=== PATIENT | male | born 1985 | race Caucasian/White ===

== ENCOUNTER 2018-08-11 07:32 | Inpatient (IN) | payer OTHER ==
[2018-07-31 12:11] VITALS: BMI 48.3
[2018-08-11] MEDS ORDERED: PROPOFOL 20 ML ONE (08:21)
[2018-08-11] MEDS ORDERED: MIDAZOLAM HCL 2 MG/2 ML SINGLE DOSE VIAL ONE ×3 (08:21→09:53)
[2018-08-11] MEDS ORDERED: ROCURONIUM BROMIDE 50 MG/5 ML VIAL ONE (08:21)
[2018-08-11] MEDS ORDERED: ONDANSETRON 4 MG/2 ML VIAL ONE ×3 (08:21→11:51)
[2018-08-11] MEDS ORDERED: fentaNYL CITRATE 250 MCG/5 ML VIAL ONE (08:21)
[2018-08-11] MEDS ORDERED: DEXAMETHASONE SOD PHOSPHATE 4 MG/1 ML VIAL ONE ×2 (08:21→10:52)
[2018-08-11] MEDS ORDERED: BUPIVACAINE HCL/PF (5 MG/ML) 30 ML VIAL IJ ONE (08:44)
[2018-08-11] MEDS ORDERED: ALBUTEROL SO4 8 GM HFA INHALER IH PRN (09:00)
[2018-08-11] MEDS ORDERED: ALBUTEROL SO4 0.083% IH SOL 2.5 MG/3 ML VIAL.NEB. NEB PRN (09:00)
--- NOTE | 2018-08-11 09:04 | HP ---
Admitting History and Physical - Admission Chief Complaint: Morbid obesity. Umbilical hernia History Source: Patient Limitations to Obtaining History: No Limitations - Past Medical History Pulmonary: Yes: Asthma - Smoking History Smoking history: Never smoked - Alcohol/Substance Use Hx Alcohol Use: No Home Medications - Allergies Allergies/Adverse Reactions: Allergies Allergy/AdvReac Type Severity Reaction Status Date / Time seasonal Allergy Uncoded 08/11/18 08:02 - Home Medications Home Medications: Ambulatory Orders Albuterol 0.083% Nebulizer Vonnie [Ventolin 0.083%] 1 neb NEB QID PRN 07/31/18 Albuterol Sulfate Inhaler - [Ventolin Hfa Inhaler -] 1 - 2 inh PO QID PRN Cetirizine HCl [Zyrtec -] 10 mg PO DAILY PRN 07/31/18 Famotidine [Pepcid] 20 mg PO DAILY 07/31/18 Loratadine [Claritin] 10 mg PO DAILY PRN 07/31/18 Famotidine [Pepcid] 20 mg PO BID #60 tablet 08/11/18 Oxycodone HCl/Acetaminophen [Percocet 5-325 mg Tablet] 1 - 2 tab PO Q6H #28 tab MDD 4 08/11/18 Family Disease History - Family Disease History Family History: Denies Review of Systems - Review of Systems Constitutional: denies: Chills, Fever HENT: reports: No Symptoms Neck: reports: No Symptoms Cardiovascular: reports: No Symptoms Respiratory: reports: No Symptoms Gastrointestinal: reports: No Symptoms Neurological: reports: No Symptoms Pain Intensity: 0 Physical Examination Vital Signs: Vital Signs Temperature Pulse Rate 96 H 08/11/18 08:04 Respiratory Rate 16 08/11/18 08:04 Blood Pressure 164/87 08/11/18 08:04 O2 Sat by Pulse Oximetry (%) 97 08/11/18 08:14 Constitutional: Yes: Calm Neck: Yes: WNL Cardiovascular: Yes: Regular Rate and Rhythm Respiratory: Yes: Regular Gastrointestinal: Yes: Soft, Abdomen, Obese Neurological: Yes: Alert, Oriented Problem List - Problems (1) Morbid obesity due to excess calories Code(s): E66.01 - MORBID (SEVERE) OBESITY DUE TO EXCESS CALORIES (2) Umbilical hernia Code(s): K42.9 - UMBILICAL HERNIA WITHOUT OBSTRUCTION OR GANGRENE Qualifiers: Obstruction and gangrene presence: without obstruction or gangrene Qualified Code(s): K42.9 - Umbilical hernia without obstruction or gangrene Assessment/Plan Laparoscopic possible open vertical sleeve gastrectomy, umbilical hernia repair with possible mesh, possible liver biopsy, possible upper endoscopy
[2018-08-11] MEDS ORDERED: DESFLURANE GAS 240 ML BOTTLE IH ONE (10:41)
[2018-08-11] MEDS ORDERED: ceFAZolin SODIUM 1 GM VIAL ONE (10:52)
[2018-08-11] MEDS ORDERED: LIDOCAINE HCL 4% TOPICAL SOLN (50 ML/BOTTLE) ONE (10:52)
[2018-08-11] MEDS ORDERED: BUPIVACAINE HCL/PF 2.5 MG/ML - 30 ML VIAL IJ ONE (10:55)
--- NOTE | 2018-08-11 11:38 | OP ---
Operative Note - Note: Operative Date: 08/11/18 Pre-Operative Diagnosis: Morbid obesity. BMI 48. Umbilical hernia Operation: Diagnostic laparoscopy. Laparoscopic vertical sleeve gastrectomy. Laparoscopic wedge liver biopsy. Laparoscopic umbilical hernia repair Post-Operative Diagnosis: Same as Pre-op (as well as hepatomegaly) Anesthesia: General Specimens Removed: Greater curvature of the stomach. Liver biopsy Estimated Blood Loss (mls): 30 Drains & Tubes with Location: 36 Fr Bougie Operative Report Dictated: Yes
[2018-08-11] MEDS ORDERED: ONDANSETRON 4 MG/2 ML VIAL IVPUSH SCH (11:45)
[2018-08-11] MEDS ORDERED: METOCLOPRAMIDE HCL INJECTION 10 MG/2 ML VIAL ONE (11:50)
[2018-08-11] MEDS: METOCLOPRAMIDE HCL INJECTION 10 MG/2 ML VIAL IVPUSH SCH ×4 (11:50→23:54)
[2018-08-11] MEDS ORDERED: FAMOTIDINE 20 MG/50 ML IVPB 20 MG/50 ML MG IVPB ONE (11:50)
[2018-08-11] MEDS ORDERED: FAMOTIDINE 20 MG PREMIXED IVPB IVPB ONE (12:00)
[2018-08-11] MEDS ORDERED: ONDANSETRON 4 MG/2 ML VIAL IVPUSH PRN (12:04)
[2018-08-11 12:17] LABS: HEMATOCRIT 43.6 % (35.4-49); HEMOGLOBIN 14.1 GM/dl (11.7-16.9); MCH 28.9 pg (25.7-33.7); MCHC 32.4 g/dl (32.0-35.9); MEAN CELL VOLUME 89.5 fl (80-96); MEAN PLT VOLUME 9.6 fl (7.5-11.1); PLATELET COUNT 321 K/MM3 (134-434); RBC 4.87 M/mm3 (4.00-5.60); RDW 13.7 % (11.9-15.9); WHITE BLOOD COUNT 13.1 K/mm3 (4.0-10.8)
[2018-08-11] MEDS ORDERED: HALOPERIDOL LACTATE 5 MG/ML IM ONE (12:20)
[2018-08-11] MEDS ORDERED: HALOPERIDOL LACTATE 5 MG/ML IV ONE (12:30)
[2018-08-11 12:40] LABS: ALBUMIN 3.7 g/dl (3.4-5.0); BILIRUBIN,TOTAL 0.5 mg/dl (0.2-1); CALCIUM 8.4 mg/dl (8.5-10); CREATININE 0.9 mg/dl (0.55-1.3); POTASSIUM 4.2 mmol/L (3.5-5.1)
[2018-08-11] MEDS: ACETAMINOPHEN 1000 MG/100 ML VIAL (NON FORMULARY) IVPB SCH ×4 (12:44→23:54)
[2018-08-11] MEDS: HYDROmorphone HCL CARPU-JECT 1 MG/1 ML DISP.SYRIN IVPB PRN ×2 (13:30→21:15)
[2018-08-11] MEDS: SODIUM CHLORIDE 1,000 ML IV SCH ×2 (13:36→14:53)
--- NOTE | 2018-08-11 14:49 | SPEC ---
DATE OF OPERATION: 08/11/[address] PL[address] OF SURGERY: [place] [address] SURGEON: Enrique Thompson MD [facility]OM[facility] COACH: Mika Pena MD PREOPERATIVE DIAGNOSES: 1. Morbid obesity. 2. Body mass index of 48.4. 3. Umbilical hernia. POSTOPERATIVE DIAGNOSES: 1. Morbid obesity. 2. Body mass index of 48.4. 3. Umbilical hernia. 4. Hepatomegaly. PROCEDURES: 1. Diagnostic laparoscopy. 2. Laparoscopic vertical sleeve gastrectomy. 3. Laparoscopic wedge liver biopsy. 4. Laparoscopic umbilical hernia repair. SPECIMEN: 1. Greater curvature of the stomach. 2. Liver biopsy. ESTIMATED BLOOD LOSS: 30 mL. DRAINS: None. ANESTHESIA: GET. BOUGIE SIZE: 36-Nepali. REASON FOR PROCEDURE: This is a 32-year-old gentleman who presents to the office for both weight loss options as well as an umbilical hernia, which was palpated in the office. The risks and benefits were explained. RISKS AND BENEFITS: After describing the different options for weight loss management, the patient decided to proceed with a laparoscopic, possible open vertical sleeve gastrectomy. The patient was seen by the respective subspecialties and cleared for surgery. The risks and benefits of the procedure were explained. These included bleeding, infection, hernia, NC, DVT, PE, injury to surrounding structures including the liver, colon, bowel, spleen, esophagus, vessel injury, nerve injury, weight regain, gastric leak, staple line leak, sleeve leak, obstruction, vitamin deficiency, hair loss and as some of the possible complications. The patient understood and signed informed consent. DESCRIPTION OF PROCEDURE: The patient was placed supine on the operating room table. The patient underwent general endotracheal intubation. The arms were brought out at 90 degrees and secured. A footboard was placed and the legs were secured laterally with padding. The abdomen was prepped and draped in the usual sterile fashion. A timeout was performed. An incision was made in the left upper quadrant and a Veress needle inserted. Pneumoperitoneum was established. Subsequently, the Veress needle was removed and a 5-mm trocar was placed under direct visualization with the laparoscope. The laparoscopic camera was then inserted and inspection of the abdominal cavity was performed. An incision was then made in the supraumbilical area and a 15-mm trocar was placed under direct visualization. A 5-mm trocar was then placed in the right upper quadrant and a 5-mm trocar was placed below the left subcostal margin. A stab wound was made in the subxiphoid area and a Sara clamp inserted and removed to dilate the tract. A Lewis liver retractor was inserted. The post was secured at the bedside by the nursing staff. The patient was placed in steep reverse Trendelenburg position and the Lewis liver retractor was used to secure the liver towards the anterior abdominal wall. The pylorus was identified and 6 cm proximal to it, the lesser sac was entered using the LigaSure device. All lateral attachments to the greater curvature of the stomach, including the short gastric vessels, were ligated using the LigaSure device toward the gastrosplenic and gastrophrenic ligaments. Once this was done in its entirety, it was confirmed that all tubes within the nasal or oropharyngeal cavity, including a temperature probe were removed by Anesthesia. The bougie was then inserted by Anesthesia. Transection of the stomach was then begun staying adjacent to the bougie but away from the angularis. Transection of the stomach was performed near the portion of the stomach where the lesser sac was entered. Two laparoscopic Endo-NESTOR black dinorah were used at this location. Laparoscopic Endo NESTOR purple staple loads were then used for the remainder of the transection until the greater curvature of the stomach was fully transected. This was done staying close to the bougie. Care was taken to stay away from the angle of His cephalad. The staple line was then inspected. Hemostasis was identified. A leak test was then performed. It was clamped distally to the staple line. Irrigation solution was placed in the left upper quadrant and air was insufflated by Anesthesia into the sleeve. No leaks were identified. No obstruction was identified. This was done through the entirety of the staple line. The stomach was suctioned and the bougie removed fully intact under direct visualization. At this point, the irrigation solution was suctioned and again, hemostasis was noted. A wedge liver biopsy was then performed. The left lobe of the liver was identified. A portion of the edge of the left lobe of the liver was grasped. Using electrocautery, a wedge of the left liver was excised. The specimen was removed and sent off the field. Hemostasis of the wedge liver biopsy site was attained and noted using electrocautery. The 15-mm supraumbilical trocar was then removed and the greater curvature specimen removed from the site using a sponge stick rayo. A Shashi-Al device was then used to close the fascia with a 0 Vicryl suture at the site. Again, hemostasis was noted. The Lewis liver retractor was then removed under direct visualization. Pneumoperitoneum was desufflated. Hemostasis was noted at all incision sites and Marcaine was injected at all incision sites. In addition, because of the umbilical hernia, risk of recurrence of umbilical hernia was included in the risks and benefits of the procedure. After the vertical sleeve gastrectomy was completed, the umbilical hernia was then noted. This was closed using a 0 Vicryl suture with a Shashi-Al device laparoscopically. The defect was noted to be secured with a suture. A 3-0 Vicryl suture was used to close the deep subcutaneous tissue at the 15-mm incision site. All incision sites were closed using 4-0 Biosyn. Sterile dressings were applied. The patient tolerated the procedure well and was transferred to the recovery room in stable condition. Betty [id number]
[2018-08-11] MEDS: ONDANSETRON 4 MG/2 ML VIAL IVPUSH SCH ×3 (15:37→23:54)
[2018-08-11] MEDS: HYDROmorphone HCL CARPU-JECT 2 MG/1 ML DISP.SYRIN IVPB PRN (16:40)
--- NOTE | 2018-08-11 16:49 | CONSULT ---
Consult Consult Specialty:: Reason for Consultation:: post-op medical management - History of Present Illness Chief Complaint: Morbid obesity. History of Present Illness: 32 yo man with BMI 48, Umbilical hernia. came in with Diagnostic laparoscopy. Laparoscopic vertical sleeve gastrectomy. Laparoscopic wedge liver biopsy. Laparoscopic umbilical hernia repair - History Source History Provided By: Patient Limitations to Obtaining History: No Limitations - Past Medical History Pulmonary: Yes: Asthma - Alcohol/Substance Use Hx Alcohol Use: No - Smoking History Smoking history: Never smoked Home Medications - Allergies Allergies/Adverse Reactions: Allergies Allergy/AdvReac Type Severity Reaction Status Date / Time No Known Drug Allergies Allergy Intermediate Verified 08/11/18 12:17 seasonal AdvReac Unknown Uncoded 08/11/18 12:16 - Home Medications Home Medications: Ambulatory Orders Albuterol 0.083% Nebulizer Vonnie [Ventolin 0.083%] 1 neb NEB QID PRN 07/31/18 Albuterol Sulfate Inhaler - [Ventolin Hfa Inhaler -] 1 - 2 inh PO QID PRN Cetirizine HCl [Zyrtec -] 10 mg PO DAILY PRN 07/31/18 Famotidine [Pepcid] 20 mg PO DAILY 07/31/18 Loratadine [Claritin] 10 mg PO DAILY PRN 07/31/18 Famotidine [Pepcid] 20 mg PO BID #60 tablet 08/11/18 Oxycodone HCl/Acetaminophen [Percocet 5-325 mg Tablet] 1 - 2 tab PO Q6H #28 tab MDD 4 08/11/18 Review of Systems - Review of Systems Constitutional: reports: No Symptoms Eyes: reports: No Symptoms HENT: reports: No Symptoms Neck: reports: No Symptoms Cardiovascular: reports: No Symptoms Respiratory: reports: No Symptoms Gastrointestinal: reports: No Symptoms Genitourinary: reports: No Symptoms Musculoskeletal: reports: No Symptoms Integumentary: reports: No Symptoms Neurological: reports: No Symptoms Endocrine: reports: No Symptoms Hematology/Lymphatic: reports: No Symptoms Psychiatric: reports: No Symptoms Physical Exam Vital Signs: Vital Signs Temperature 98.5 F 08/11/18 14:00 Pulse Rate 95 H 08/11/18 15:27 Respiratory Rate 18 08/11/18 15:27 Blood Pressure 131/58 L 08/11/18 15:27 O2 Sat by Pulse Oximetry (%) 98 08/11/18 14:00 Constitutional: Yes: Well Nourished, Obese Eyes: Yes: WNL HENT: Yes: WNL Neck: Yes: WNL Cardiovascular: Yes: WNL Respiratory: Yes: WNL Gastrointestinal: Yes: WNL Renal/: Yes: WNL Musculoskeletal: Yes: WNL Extremities: Yes: WNL Edema: No Peripheral Pulses WNL: Yes Integumentary: Yes: WNL Neurological: Yes: WNL ...Motor Strength: WNL Psychiatric: Yes: WNL Labs: CBC, BMP 08/11/18 12:00 08/11/18 12:00 Assessment/Plan 32 yo man with BMI 48, Umbilical hernia. S/P Diagnostic laparoscopy POD # 0. Laparoscopic vertical sleeve gastrectomy. Laparoscopic wedge liver biopsy. Laparoscopic umbilical hernia repair. -GI, DVT prophylaxis. -h/o asthma: cont bronchodilators. -oral diet -OOB as tolerated -blood work and meds reviewed. post-op leucocytosis; will monitor. -possible DC home tomorrow if stable.
[2018-08-11] MEDS: ENOXAPARIN NA (PORCINE) 40 MG/0.4 ML DISP.SYRIN SQ SCH (21:16)
[2018-08-11] MEDS: FAMOTIDINE 20 MG/50 ML IVPB 20 MG/50 ML MG IVPB SCH (21:16)
[2018-08-12] MEDS: HYDROmorphone HCL CARPU-JECT 2 MG/1 ML DISP.SYRIN IVPB PRN ×2 (01:52→06:56)
[2018-08-12] MEDS: ONDANSETRON 4 MG/2 ML VIAL IVPUSH SCH ×3 (03:52→11:42)
[2018-08-12] MEDS: ACETAMINOPHEN 1000 MG/100 ML VIAL (NON FORMULARY) IVPB SCH (05:52)
[2018-08-12] MEDS: METOCLOPRAMIDE HCL INJECTION 10 MG/2 ML VIAL IVPUSH SCH ×2 (05:52→11:42)
[2018-08-12 08:15] LABS: HEMATOCRIT 42.4 % (35.4-49); HEMOGLOBIN 13.9 GM/dl (11.7-16.9); MCH 28.8 pg (25.7-33.7); MCHC 32.8 g/dl (32.0-35.9); MEAN CELL VOLUME 87.9 fl (80-96); MEAN PLT VOLUME 9.4 fl (7.5-11.1); PLATELET COUNT 311 K/MM3 (134-434); RBC 4.82 M/mm3 (4.00-5.60); RDW 13.9 % (11.9-15.9); WHITE BLOOD COUNT 13.2 K/mm3 (4.0-10.8)
[2018-08-12 08:26] LABS: ALBUMIN 3.7 g/dl (3.4-5.0); BILIRUBIN,TOTAL 0.4 mg/dl (0.2-1); CALCIUM 8.4 mg/dl (8.5-10); CREATININE 0.8 mg/dl (0.55-1.3); POTASSIUM 3.6 mmol/L (3.5-5.1)
[2018-08-12] MEDS: ENOXAPARIN NA (PORCINE) 40 MG/0.4 ML DISP.SYRIN SQ SCH (10:05)
[2018-08-12] MEDS: FAMOTIDINE 20 MG/50 ML IVPB 20 MG/50 ML MG IVPB SCH (10:05)
--- NOTE | 2018-08-12 10:35 | PN ---
Progress Note, Physician History of Present Illness: 32 yo man with BMI 48, Umbilical hernia. came in with Diagnostic laparoscopy. Laparoscopic vertical sleeve gastrectomy. Laparoscopic wedge liver biopsy. Laparoscopic umbilical hernia repair - Current Medication List Current Medications: Active Medications Albuterol Sulfate (Ventolin 0.083% Nebulizer Soln -) 1 amp NEB QID PRN PRN Reason: ASTHMA Albuterol Sulfate (Ventolin Hfa Inhaler -) 1 - 2 puff IH QID PRN PRN Reason: ASTHMA Enoxaparin Sodium (Lovenox -) 40 mg SQ BID [facility] Last Admin: 08/12/18 10:05 Dose: 40 mg Hydromorphone HCl (Dilaudid Injection -) 1 mg IVPB Q3H PRN PRN Reason: PAIN LEVEL 4 - 6 Last Admin: 08/11/18 21:15 Dose: 1 mg Hydromorphone HCl (Dilaudid Injection -) 2 mg IVPB Q3H PRN PRN Reason: PAIN LEVEL 7-10 Last Admin: 08/12/18 06:56 Dose: 2 mg Famotidine/Sodium Chloride (Pepcid 20 Mg Premixed Ivpb -) 20 mg in 50 mls @ 100 mls/hr IVPB BID [facility] Last Admin: 08/12/18 10:05 Dose: 100 mls/hr Sodium Chloride (Normal Saline -) 1,000 mls @ 150 mls/hr IV ASDIR [facility] Last Admin: 08/11/18 14:53 Dose: 150 mls/hr Metoclopramide HCl (Reglan Injection -) 10 mg IVPUSH Q6H [facility] Last Admin: 08/12/18 05:52 Dose: 10 mg Ondansetron HCl (Zofran Injection) 4 mg IVPUSH Q4H [facility] Last Admin: 08/12/18 08:09 Dose: 4 mg - Objective Vital Signs: Vital Signs Temperature 99.1 F 08/12/18 10:00 Pulse Rate 82 08/12/18 10:00 Respiratory Rate 08/12/18 10:00 Blood Pressure 135/86 08/12/18 10:00 O2 Sat by Pulse Oximetry (%) 96 08/12/18 10:00 Constitutional: Yes: Well Nourished, No Distress Eyes: Yes: WNL HENT: Yes: WNL Neck: Yes: WNL Cardiovascular: Yes: WNL Respiratory: Yes: WNL Gastrointestinal: Yes: WNL Genitourinary: Yes: WNL Musculoskeletal: Yes: WNL Extremities: Yes: WNL Edema: No Peripheral Pulses WNL: Yes Integumentary: Yes: WNL Neurological: Yes: WNL ...Motor Strength: WNL Psychiatric: Yes: WNL Labs: CBC, BMP 08/12/18 07:30 08/12/18 07:30 Assessment/Plan 32 yo man with BMI 48, Umbilical hernia. S/P Diagnostic laparoscopy POD # 1. Laparoscopic vertical sleeve gastrectomy. Laparoscopic wedge liver biopsy. Laparoscopic umbilical hernia repair. pain management. incentive spirometry -GI, DVT prophylaxis. -h/o asthma: cont bronchodilators. -oral diet -OOB as tolerated -blood work and meds reviewed. post-op leucocytosis; will monitor. -Pt is medically stable. DC plan as per primary team
[2018-08-12] MEDS ORDERED: oxyCODONE HCL 5 MG TABLET PO PRN (11:16)
--- NOTE | 2018-08-12 11:18 | PN ---
Progress Note (short form) - Note Progress Note: POD 1 No nausea/vomiting Vital Signs Period Temp Pulse Resp BP Sys/Charels Pulse Ox Last 24 Hr 98 F-99.1 F 82-111 16-20 119-181/56-100 96-100 CBC,CMP WBC 13.2 K/mm3 (4.0-10.8) H 08/12/18 07:30 RBC 4.82 M/mm3 (4.00-5.60) 08/12/18 07:30 Hgb 13.9 GM/dl (11.7-16.9) 08/12/18 07:30 Hct 42.4 % (35.4-49) 08/12/18 07:30 MCV 87.9 fl (80-96) 08/12/18 07:30 MCH 28.8 pg (25.7-33.7) 08/12/18 07:30 MCHC 32.8 g/dl (32.0-35.9) 08/12/18 07:30 RDW 13.9 % (11.9-15.9) 08/12/18 07:30 Plt Count 311 K/MM3 (134-434) 08/12/18 07:30 MPV 9.4 fl (7.5-11.1) 08/12/18 07:30 Sodium 136 mmol/L (136-145) 08/12/18 07:30 Potassium 3.6 mmol/L (3.5-5.1) 08/12/18 07:30 Chloride 107 mmol/L (98-107) 08/12/18 07:30 Carbon Dioxide 23 mmol/L (21-32) 08/12/18 07:30 Anion Gap 6 MMOL/L (8-16) L 08/12/18 07:30 BUN 7.0 mg/dl (7-18) 08/12/18 07:30 Creatinine 0.8 mg/dl (0.55-1.3) 08/12/18 07:30 Est GFR (CKD-EPI)AfAm 137.96 08/12/18 07:30 Est GFR (CKD-EPI)NonAf 119.03 08/12/18 07:30 Random Glucose 112 mg/dl (74-106) H 08/12/18 07:30 Calcium 8.4 mg/dl (8.5-10) L 08/12/18 07:30 Total Bilirubin 0.4 mg/dl (0.2-1) 08/12/18 07:30 AST 24 U/L (15-37) 08/12/18 07:30 ALT 27 U/L (13-61) 08/12/18 07:30 Alkaline Phosphatase 77 U/L (45-117) 08/12/18 07:30 Total Protein 7.0 g/dl (6.4-8.2) 08/12/18 07:30 Albumin 3.7 g/dl (3.4-5.0) 08/12/18 07:30 UGI: no leak/obstruction Clear Discharge planning Problem List - Problems (1) Morbid obesity due to excess calories Code(s): E66.01 - MORBID (SEVERE) OBESITY DUE TO EXCESS CALORIES (2) Umbilical hernia Code(s): K42.9 - UMBILICAL HERNIA WITHOUT OBSTRUCTION OR GANGRENE Qualifiers: Obstruction and gangrene presence: without obstruction or gangrene Qualified Code(s): K42.9 - Umbilical hernia without obstruction or gangrene
[2018-08-12] MEDS ORDERED: SODIUM CHLORIDE 1,000 ML IV SCH (11:30)
[2018-08-12 12:18] VITALS: BP 130/81; PULSE 79; TEMP 98.9
--- NOTE | 2018-08-15 12:16 | PATH ---
Surgical Pathology Report Patient Name: JACKIE MCKINNEY Med. Rec. #: [id number] /Age/Gender: 1985 (Age: 32) / M Account: [id number] Location: [facility] Taken: 08/11/2018 Received: 08/11/2018 Reported: 08/15/2018 Physicians: Enrique Thompson M.D. Specimen(s) Received A: GREATER CURVATURE STOMACH B: LIVER BIOPSY Clinical History Morbid obesity, umbilical hernia Final Diagnosis A. GREATER CURVATURE, STOMACH, LAPAROSCOPIC GASTRIC SLEEVEEXCISION: PORTION OF STOMACH WITH NO SIGNIFICANT PATHOLOGIC FINDINGS. IMMUNOSTAIN IS NEGATIVE FOR H. PYLORI ORGANISMS. B. LIVER, BIOPSY: PORTION OF LIVER SHOWING MILD STEATOSIS (~5%). TRICHROME STAIN SHOWS NO APPRECIABLE INCREASE IN FIBROSIS. IRON STAIN SHOWS NO INCREASE IN IRON DEPOSITS. Electronically Signed Irma Saenz M.D. Gross Description A. Received in formalin, labeled "greater curvature of stomach," is a 124 gram, 19.5 x 4.0 x 3.2 cm. portion of stomach with a stapled margin of resection. The serosa is roa-stanley with minimal attached fat. The mucosa is roa-pink with normal folds. No mucosal masses are identified. Nuclear Medicine Technologist sections are submitted in one cassette. B. Received in formalin labeled "liver biopsy," is a 2.3 x 0.7 x 0.4 cm roa portion of soft tissue, consistent with a portion of liver. The specimen is bisected and entirely submitted in one cassette. /08/12/2018 saudi08/12/2018
== END 2018-08-12 13:20 | disposition home or self-care (01) | DRG 621 ==
LOC: FM/S 07:32
PROVIDERS: ADMIT Surgery; ATTEND Surgery
PROC: 0DB64Z3 Excision of Stomach, Percutaneous Endoscopic Approach, Vertical (ICD-10-PCS; principal; 2018-08-11 10:25)
PROC: 0FB24ZX Excision of Left Lobe Liver, Percutaneous Endoscopic Approach, Diagnostic (ICD-10-PCS; 2018-08-11 10:25)
PROC: 0WQF0ZZ Repair Abdominal Wall, Open Approach (ICD-10-PCS; 2018-08-11 10:25)
DX: E66.01 Morbid (severe) obesity due to excess calories (principal); Z68.42 Body mass index [BMI] 45.0-49.9, adult; K42.9 Umbilical hernia without obstruction or gangrene; J45.909 Unspecified asthma, uncomplicated; R16.0 Hepatomegaly, not elsewhere classified
CPT/HCPCS: 36415; 74241-TC-FY; 80053; 85027; 88305-TC; 88313-TC; 94760; J0131; J7030